=== PATIENT | male | born 1960 ===

== ENCOUNTER → 2019-12-14 14:36 | Outpatient (CLI) | payer OTHER, SELFPAY ==
--- NOTE | 2019-12-14 | DI.US.S_ITS ---
PROCEDURE: US SCROTUM INDICATIONS: LEFT TESTICULAR PAIN TECHNIQUE: Real-time scanning was performed of the scrotum and testicles, with image documentation. Color and pulse Doppler interrogation was performed of both testicles. COMPARISON: None. FINDINGS: Right: Testicle is normal in size at 4.0 x 2.6 x 3.3 cm, and homogenous in echotexture. Microcalcifications. Epididymis is normal in overall size and morphology. Mild hydrocele and mild varicocele. Overlying scrotal skin is normal in thickness. Left: Testicle is normal in size at 3.9 x 2.8 x 2.9 cm, and homogeneous in echotexture. Microcalcifications. Epididymis is normal in overall size and morphology. Mild hydrocele and mild varicocele. Overlying scrotal skin is normal in thickness. Doppler: Color and pulse Doppler demonstrate normal and symmetric arterial flow in both testicles. 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 In the absence of any other risk factors for testicular cancer (personal history of testicular cancer, a father or brother with testicular cancer, history of cryptorchidism or maldescent, etc.), no further imaging or biochemical followup is necessary. All that is recommended is routine monthly testicular self examination. ([place] Journal of Roentgenology; 206: September 2015) Mild hydrocele and varicocele bilaterally. Dictated by: Sammy EVANS Interpreted: Bi Scherer MD on 12/14/2019 at 15:28 Approved by: Bi Scherer M.D. on 12/14/2019 at 16:55
== END ==
PROVIDERS: Family Provider Family Medicine; PCP Family Medicine; Referring Provider Family Medicine; Visit Provider Family Medicine
DX: N50.812 Left testicular pain (principal); N43.3 Hydrocele, unspecified; I86.1 Scrotal varices
CPT/HCPCS: 76870

== ENCOUNTER → 2020-06-14 15:18 | Outpatient (ROUT) | payer OTHER, SELFPAY | PROVIDERS: Family Provider Family Medicine; PCP Family Medicine; Visit Provider Family Medicine | DX: R21 Rash and other nonspecific skin eruption (principal) | CPT/HCPCS: 87070; 87075; 87077; 87147; 87205 ==